=== PATIENT | male | born 1950 | race African-American/Black ===

== ENCOUNTER → 2020-02-09 09:05 | Outpatient (CLI) | payer MEDICARE, OTHER, SELFPAY ==
--- NOTE | 2020-02-09 | DI.RAD.S_ITS ---
PROCEDURE: XR HIP W PEL IF DONE LT MIN 4V INDICATIONS: ACUTE LT SIDED LBP/ LAB TECHNIQUE: AP pelvis with lateral view(s) of the bilateral hip(s). COMPARISON: None. FINDINGS: Bones: No fractures or dislocations. Pelvic ring appears intact. No suspicious bony lesions. There is a moderate degree of degenerative hip joint space narrowing, greater on the left than the right, and no sign of distant past fracture. There is a curvilinear lucency superimposed on the superior femoral neck at the left, seen on both the frontal and lateral views, but in the absence of trauma the likelihood of a fracture in this area is considered very low Soft tissues: The visualized bowel gas pattern is normal. No suspicious soft tissue calcifications. IMPRESSION: Asymmetric hip joint osteoarthritis, left greater than right, as the likely cause for asymmetric left side predominant hip pain. As discussed above there is an unexplained curvilinear lucency seen on frontal and lateral views at the left femoral neck superiorly, but considered unlikely to represent evidence of fracture in setting of no prior recent trauma. Dedicated MR scanning targeted to the pelvis and left hip may be warranted for more accurate assessment. Dictated by: Harshad Mcclendon M.D. on 02/09/2020 at 10:20 Approved by: Harshad Mcclendon M.D. on 02/09/2020 at 10:24
--- NOTE | 2020-02-09 | DI.RAD.S_ITS ---
PROCEDURE: XR LUMBAR SPINE 2-3V INDICATIONS: ACUTE LT SIDED LBP TECHNIQUE: 3 views of the lumbar spine were acquired. COMPARISON: None. FINDINGS: Bones: 5 [id number] vertebrae are present. There is mild levo scoliotic bony alignment centered at L2-L3. No vertebral body compression fractures. No suspicious bony lesions. Note is made of inferior endplate compression fractures at L2, to a greater degree at L3, L4, and not present at L5. Superior endplate impaction fractures are present at L3, to a mild degree and L4 also to a mild degree. Soft tissues: Overlying bowel gas pattern is normal. No suspicious soft tissue calcifications. IMPRESSION: The compression fractures present involve the superior and inferior vertebral endplates as noted. No acute compression fracture is found. Note is made of moderate degenerative osteoarthritis at the facet joints from L3 inferiorly and mild degenerative disc disease at L3-4. There is moderately severe degenerative disc disease at L4-L5. Mild convex leftward scoliosis is present along the lumbosacral spine. Given the findings present follow-up by MR scanning may be warranted given likelihood of significant spinal and foraminal stenosis. Dictated by: Harshad Mcclendon M.D. on 02/09/2020 at 10:18 Approved by: Harshad Mcclendon M.D. on 02/09/2020 at 10:20
[2020-02-09 10:02] LABS: Add Manual Diff / Slide Review NO; Basophils Absolute Auto 100 /uL (0-100); Basophils Percent Auto 1.4 % (0-2); Eosinophils Absolute Auto 100 /uL (0-450); Hematocrit 43.1 % (41-53); Hemoglobin 14.4 g/dL (13.5-17.5); Lymphocytes Absolute Auto 1400 /uL (1100-4500); Lymphocytes Percent Auto 34.6 % (25-40); Mean Corpuscular HGB Conc 33.5 % (30-36); Mean Corpuscular Hemoglobin 32.2 PG (26-34); Monocytes Absolute Auto 400 /uL (0-900); Monocytes Percent Auto 10.1 % (3-14); Neutrophils Absolute Auto 2100 /uL (1500-7000); Neutrophils Percent Auto 50.9 % (50-75); Platelet Count 194 X10^3/uL (150-400); Red Blood Cell Count 4.49 X10^6/uL (4.5-5.9); White Blood Cell Count 4.2 X10^3/uL (4.5-11.0)
[2020-02-09 10:25] LABS: Alanine Aminotransferase 18 IU/L (<50); Albumin 4.6 g/dL (3.5-5.0); Albumin Globulin Ratio 1.4 (1.0-2.8); Alkaline Phosphatase 106 U/L (38-126); Aspartate Aminotransferase 22 IU/L (17-59); BUN Creatinine Ratio 12.8 (6-22); Bilirubin Total 0.8 mg/dL (0.2-1.3); Blood Urea Nitrogen 28 mg/dL (9-20); Carbon Dioxide 25 mmol/L (22-32); Chloride 108 mmol/L (98-107); Cholesterol 162 mg/dL (140-199); Estimated Glomerular Filt Rate 30.2 mL/min (>60); Globulin 3.4 g/dL (1.7-4.1); Glucose 148 mg/dL (80-110); HDL Cholesterol 47 mg/dL (40-60); HEMOLYSIS < 15 (0-50); LDL Cholesterol Calculated 94 mg/dL (<100); Potassium 4.2 mmol/L (3.4-5.1); Sodium 140 mmol/L (137-145); Triglycerides 104 mg/dL (35-150)
[2020-02-09 12:36] LABS: Creatinine Urine Random 154.7 mg/dL; Protein (Total) Urine Random 36 mg/dL (0-12); Protein Creatinine Ratio Urine 0.23 GRAM/24H
== END ==
PROVIDERS: PCP Internal Medicine; Referring Provider Internal Medicine; Visit Provider Internal Medicine
DX: M54.5 Low back pain (principal); E11.22 Type 2 diabetes mellitus with diabetic chronic kidney disease; N18.9 Chronic kidney disease, unspecified; E78.2 Mixed hyperlipidemia; M47.816 Spondylosis without myelopathy or radiculopathy, lumbar region; M51.36 Other intervertebral disc degeneration, lumbar region; M41.86 Other forms of scoliosis, lumbar region; M48.56XA Collapsed vertebra, not elsewhere classified, lumbar region, initial encounter for fracture; M16.0 Bilateral primary osteoarthritis of hip
CPT/HCPCS: 36415; 72100; 73522; 80053; 80061; 82570; 84156; 85025

== ENCOUNTER → 2020-02-28 12:30 | Outpatient (CLI) | payer MEDICARE, OTHER, SELFPAY ==
--- NOTE | 2020-02-28 12:35 | DI.MRI.S_ITS ---
PROCEDURE: MR HIP LT WO CON INDICATIONS: Spinal stenosis of lumbar region TECHNIQUE: Noncontrast coronal T1 spin echo and STIR through the bony pelvis. Coronal and axial T2 fast spin echo with fat saturation, sagittal T1 spin echo, and oblique axial T2 fast spin echo with fat saturation through the hip. COMPARISON: [facility], CR, XR HIP W PEL IF DONE JAX 3TO4V, 02/09/2020, 9:14. FINDINGS: Image quality: Excellent. Bones and joints: Bone marrow of the pelvic ring and proximal femurs show normal signal throughout. No intraosseous lesions or fractures. No avascular necrosis of the femoral heads. Disc desiccation and degenerative endplate changes as well as facet hypertrophy are noted in the included lumbar spine. Tendons and ligaments: Mild edema within the left proximal gluteus minimus muscle most likely represents a low-grade strain. There is mild tendinosis of the distal gluteus medius tendons bilaterally with trace overlying trochanteric bursal effusions. The proximal iliotibial band appears intact. The iliopsoas tendon appears intact, without adjacent bursal fluid collectios. The origin of the hamstring tendon is intact at the ischial tuberosity. The direct and indirect heads of the rectus femoris muscle origin appear intact. Labrum and cartilage: There is full-thickness cartilage loss at the superior aspect of the left hip with subchondral cystic changes and edema on both sides of the joint. Mild there is diffuse degeneration of the acetabular labrum with partial ossification anteriorly. Degenerative changes are seen in the right hip without subchondral edema. Soft tissues: Visualized muscles demonstrate normal bulk and internal signal. Quadratus femoris muscle demonstrates no internal edema to suggest ischiofemoral impingement. The proximal sciatic neurovascular bundle appears intact. The included portions of the pelvis demonstrate no acute abnormality. IMPRESSION: 1. Severe degenerative changes in the left hip with full-thickness cartilage loss superiorly and associated subchondral cystic changes and edema. There is diffuse degeneration of the acetabular labrum without a displaced tear. Degenerative changes in the right hip are not well evaluated. 2. Mild edema in the left gluteus minimus muscle is compatible with a low-grade muscle strain. There is mild distal gluteus medius and minimus tendinosis bilaterally. 3. Multilevel degenerative changes are seen in the included lumbar spine. Dictated by: Rony Anderson M.D. on 02/28/2020 at 12:40 Approved by: Rony Anderson M.D. on 02/28/2020 at 12:51
--- NOTE | 2020-02-28 12:35 | DI.MRI.S_ITS ---
PROCEDURE: MR THORACIC SPINE WO CON INDICATIONS: Spinal stenosis of lumbar region TECHNIQUE: Noncontrast sagittal T1 spine echo and T2 fast spin echo, sagittal STIR, axial T1 and T2 fast spin echo through the thoracic spine. COMPARISON: [facility], CR, XR LUMBAR SPINE 2-3V, 02/09/2020, 9:14. FINDINGS: Image quality: Diagnostic, with note made of motion artifact. Alignment and Curvature: Mild dextroconvex thoracic scoliotic curvature is seen. Bone Marrow: Marrow is of normal overall signal. No acute vertebral body compression fractures. Spinal Cord: Visualized spinal cord is normal in size and signal. Paraspinous Soft Tissues: There is an enlarged right-sided thyroid that measures 5 cm AP. Miscellaneous: Mild, generalized degenerative changes are seen. No significant neural foraminal or central canal narrowing can be seen. IMPRESSION: Dextroconvex thoracic scoliosis. No significant level of neural foraminal narrowing more central canal narrowing can be seen within the thoracic spine. Enlarged thyroid. Please consider a dedicated follow-up thyroid ultrasound for further evaluation. Dictated by: Kalpesh Calvo M.D. on 02/28/2020 at 12:44 Approved by: Kalpesh Calvo M.D. on 02/28/2020 at 12:46
== END ==
PROVIDERS: PCP Internal Medicine; Referring Provider Internal Medicine; Visit Provider Internal Medicine
DX: M48.061 Spinal stenosis, lumbar region without neurogenic claudication (principal); M41.84 Other forms of scoliosis, thoracic region; M16.12 Unilateral primary osteoarthritis, left hip; M47.816 Spondylosis without myelopathy or radiculopathy, lumbar region; E04.9 Nontoxic goiter, unspecified
CPT/HCPCS: 72146; 73721

== ENCOUNTER → 2020-04-12 08:52 | Outpatient (CLI) | payer MEDICARE, OTHER, SELFPAY ==
--- NOTE | 2020-04-12 11:15 | DIET.PN ---
Diabetes Intake: Initial Assessment Assess: Mr. 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 He recently moved to the area from [place] and is working to establish care with several specialists. He is scheduled to see a color television console monitor in [place] in the next few weeks and hopes to have hip surgery in June. He has lost 25 lbs (unintentional) due to difficulty chewing. He lives with his , ?s mother and grandmother, and his 3 and 6 yr old with a baby on the way. He does not usually eat the things they prepare and has been living off of soups and eggs. He provides a list of foods he has been instructed to avoid including meats, starches, avocados, and dairy (lactose intolerance). He has not been able to exercise due to his hip fracture, but endorses playing with his kids and using the stairs of his home regularly. Generally test fasting blood sugar although he has not been monitoring since numbers have been fairly stable. Labs: Per pt report: A1c: 7.6 (reports usual 6.5) chol: 162 LDL: 94 HDL: 47 Tr Meds: Bydureon q weekly (metformin/glyburide discontinued) Diet: per 24 hr recall: cabbage and carrot soup, green beans, apple slices, bananas, eggs, glucerna Wt: 212lb Ht: 72in UBW: 235lb BMI: 28.7 DX: Altered nutrition related laboratory values related to impaired glucose metabolism, lack of previous exposure to nutrition information as evidenced by pt report, diagnosis of diabetes, previous diet high in refined carbohydrates. Intervention: 1. Completed intake assessment. Discussed barriers to care. 2.Discussed pathophysiology of diabetes. Reviewed A1c and its correlation to blood glucose numbers. Discussed recommended BG ranges. 3. Discussed importance of self-monitoring, how often, and when to check. 4. Reviewed hyper/hypoglycemia and treatment. 5. Reviewed safe disposal of equipment (strip/lancets/insulin needles). 6. Created SMART goals for pt self-care and success. 7. Discussed program curriculum outline and class needs based on individual goals. SMART Goals: 1. Pt overall goal to find foods to eat that meat both diabetic and kidney health. Monitor/Evaluate: Pt will attend full DSME program. Will follow up with individual appt to discuss Kidney diet before scheduling DSME.
== END ==
PROVIDERS: PCP Internal Medicine; Referring Provider Internal Medicine; Visit Provider Internal Medicine
DX: E11.21 Type 2 diabetes mellitus with diabetic nephropathy (principal); E11.22 Type 2 diabetes mellitus with diabetic chronic kidney disease; N18.30 Chronic kidney disease, stage 3 unspecified; R63.4 Abnormal weight loss; Z68.28 Body mass index [BMI] 28.0-28.9, adult
CPT/HCPCS: G0108

== ENCOUNTER → 2020-05-17 09:08 | Outpatient (CLI) | payer MEDICARE, OTHER, SELFPAY ==
--- NOTE | 2020-05-17 09:12 | DI.US.S_ITS ---
PROCEDURE: US ABD AORTA ANEURYSM SCREEN INDICATIONS: ABDOMINAL AORTIC ANEURYSM SCREENING TECHNIQUE: Real time scanning was performed of the aorta and iliac arteries, with image documentation. COMPARISON: [facility], US, ABDOMEN SONOGRAM LIMITED, 10/05/2012, 11:28. FINDINGS: Aorta: Proximal aortic diameter measures 2.7 cm. Mid-aorta measures 2.7 cm. Distal aortic diameter is 1.7 cm. Iliac arteries: Right common iliac artery measures 1.7 cm. Left common iliac artery measures 1.6 cm. IMPRESSION: Negative for aneurysm. Dictated by: Kalpesh Calvo M.D. on 05/17/2020 at 9:24 Approved by: Kalpesh Calvo M.D. on 05/17/2020 at 9:25
--- NOTE | 2020-05-17 09:13 | DI.RAD.S_ITS ---
PROCEDURE: XR DEXA AXIAL SKELETON INDICATIONS: Age-related osteoporosis COMPARISON: None. FINDINGS: This blank DEXA report has been sent in error by the PACS system. The correct and complete report will be forthcoming in 1-2 days. Thank you for your patience and understanding. Dictated by: Britt Truong MD, PhD on 05/17/2020 at 17:50 Approved by: Britt Truong MD, PhD on 05/17/2020 at 17:50
== END ==
PROVIDERS: PCP Internal Medicine; Referring Provider Internal Medicine; Visit Provider Internal Medicine
DX: Z13.6 Encounter for screening for cardiovascular disorders (principal); M85.851 Other specified disorders of bone density and structure, right thigh; M81.8 Other osteoporosis without current pathological fracture; N25.81 Secondary hyperparathyroidism of renal origin; E11.9 Type 2 diabetes mellitus without complications; M06.9 Rheumatoid arthritis, unspecified; Z82.62 Family history of osteoporosis; Z87.891 Personal history of nicotine dependence
CPT/HCPCS: 76706; 77080

== ENCOUNTER → 2020-05-17 10:31 | Outpatient (CLI) | payer MEDICARE, OTHER, SELFPAY ==
--- NOTE | 2020-05-17 11:59 | DIET.PN ---
DIABETES Nutrition Initial Assessment:? ASSESS:?? Mr. Godoy is a 69 yom?referred for type 2 diabetes w/ CKD stage 3. He is here for follow up regarding recent lab changes and need for dietary strategies. He recently met with nephrology to review changes in kidney function. He continues to have unintentional weight loss which he is concerned may be related to cancer as he has a strong family hx. He has been able to eat more recently including soups, noodles, chicken, fish, harkins, eggs, and ice cream. His blood sugars have been slightly elevated, but he is more concerned with weight loss at this point. ??? LABS: Per pt report:? A1c: 7.6 eGFR: 30.2 : 4.2 ? MEDS:?? bydureon q weekly ? DIET: Per 24-hour recall:? Changes in Appetite: able to eat more Nutrition Supplements: glucerna ? Weight: 209lb (from 212) Height: 72in BMI: ? 28.3 ? Exercise:? N/A hip issues NUTRITION DX 1. Altered Nutrition related labs related to impaired glucose metabolism, lack of previous exposure to accurate nutrition information as evidenced by pt report, dx of diabetes, previous diet high in refined carbohydrates.? INTERVENTION(s): 1. Discussed the effect of carbohydrates/protein/fat on blood sugar control.? Stressed importance of consistent carbohydrate intake at each meal and provided instructions for recommended servings/portions of carbohydrates/protein per meal. Provided pt with educational material. 2. Discussed the difference between simple versus complex carbohydrates and the effect of fiber on blood sugar control.? Discussed various methods to increase fiber content in diet. 3. Discussed limiting phosphorus containing foods including highly processed bread/baking mixes, meats, cheeses, sauces. 4. Recommended limiting sodium to 1500mg throughout the day. 5. Recommend monitoring fasting and alternating 2 hr PP mealtime glucose. MONITOR/EVALUATE: Anticipate good compliance.? Nutrition follow-up scheduled for 1 month.
== END ==
PROVIDERS: PCP Internal Medicine; Referring Provider Internal Medicine; Visit Provider Internal Medicine
DX: E11.22 Type 2 diabetes mellitus with diabetic chronic kidney disease (principal); N18.30 Chronic kidney disease, stage 3 unspecified; R63.4 Abnormal weight loss; Z79.899 Other long term (current) drug therapy; Z68.28 Body mass index [BMI] 28.0-28.9, adult
CPT/HCPCS: G0109

== ENCOUNTER → 2020-06-21 10:51 | Outpatient (CLI) | payer MEDICARE, OTHER, SELFPAY ==
--- NOTE | 2020-06-21 11:33 | DIET.PN ---
Diabetes Follow Up Assess: Met with Mr Godoy for his 3 mo follow up visit. He continues to have improvement in appetite, but endorses challenges with chewing meats. Recent labs show improved glucose and kidney function. He is hopeful he will be able to get his hip surgery in June or August. Labs: A1c: 6.9 eGFR: 35 Cr: 2.14 Meds: Bydureon q weekly Dietary changes: continues to have improved appetite. Ht: 72in Wt: 208lb BMI: 28.2 Nutrition DX: Altered nutrition related laboratory values related to impaired glucose metabolism, lack of previous exposure to nutrition information as evidenced by pt report, diagnosis of diabetes, previous diet high in refined carbohydrates. Intervention: 1. Completed follow up assessment. Reviewed barriers to care. 2. Reviewed new labs and importance of continued BG monitoring. 3. Reviewed SMART goals and made modifications where appropriate including wt management, activity, and A1c goals. 4. Discussed plan for ongoing support. Provided information for continued support and success. SMART goals: 1. Pt goal of improved blood glucose and kidney health. Monitor/Evaluate: Pt will follow up in 3 mo to discuss new labs and barriers to care.
== END ==
PROVIDERS: PCP Internal Medicine; Referring Provider Internal Medicine; Visit Provider Internal Medicine
DX: E11.9 Type 2 diabetes mellitus without complications (principal); Z71.3 Dietary counseling and surveillance
CPT/HCPCS: G0109